=== PATIENT | male | born 1960 | race Caucasian/White ===

== ENCOUNTER 2021-11-06 06:47 | Day surgery (SDC) | payer OTHER, SELFPAY ==
[~2021-11-06] VITALS: Ht 177.8 cm; Wt 83.0 kg
[2021-11-06] MEDS ORDERED: fentaNYL citrate 0.05 MG/ML VIAL ONE (08:28)
[2021-11-06] MEDS ORDERED: MIDAZOLAM 5 MG/5 ML VIAL ONE (08:28)
[2021-11-06] MEDS ORDERED: MIDAZOLAM 2 MG/2 ML VIAL IVP ONE (09:20)
== END 2021-11-06 09:58 | disposition home or self-care (01) ==
LOC: MOR 06:47 → MMU 06:48 → MOR 09:58
PROVIDERS: ATTEND Internal Medicine Gastroenterology
DX: K70.30 Alcoholic cirrhosis of liver without ascites (principal); I85.10 Secondary esophageal varices without bleeding; B19.20 Unspecified viral hepatitis C without hepatic coma; I86.4 Gastric varices; K76.6 Portal hypertension; Z20.822 Contact with and (suspected) exposure to COVID-19
CPT/HCPCS: 36415; 43239; 86677; 87426; J2250; J3010